=== PATIENT | female | born 1945 | race Hispanic/Latino ===

== ENCOUNTER 2023-02-07 08:10 | Outpatient (CLI) | payer OTHER | END 2023-02-07 08:11 | disposition home or self-care (01) | LOC: BICULT 08:10 | PROVIDERS: ATTEND Family Medicine | DX: M79.622 Pain in left upper arm (principal) | CPT/HCPCS: 76999 ==

== ENCOUNTER 2023-08-13 07:31 | Outpatient (CLI) | payer OTHER, MEDICAID | END 2023-08-13 07:32 | disposition home or self-care (01) | LOC: BICMRI 07:31 | PROVIDERS: ATTEND Orthopaedic Surgery | DX: M23.92 Unspecified internal derangement of left knee (principal); S83.242A Other tear of medial meniscus, current injury, left knee, initial encounter; M25.462 Effusion, left knee ==